=== PATIENT | male | born 1950 | race Caucasian/White ===

== ENCOUNTER 2017-02-02 19:14 | Emergency (ER) | payer MEDICARE ==
[~2017-02-02] VITALS: Ht 175.3 cm; Wt 80.6 kg
[2017-02-02] MEDS ORDERED: SODIUM CHLORIDE 0.9% 1,000 ML IV ONE (19:23)
[2017-02-02] MEDS ORDERED: SODIUM CHLORIDE FLUSH 10ML SYR IVF ONE (19:30)
[2017-02-02] MEDS ORDERED: MAALOX/HYOSCYAMINE/LIDOCAINE 45 ML BOTTLE PO ONE (19:30)
[2017-02-02] MEDS ORDERED: MAALOX/HYOSCYAMINE/LIDOCAINE 45 ML BOTTLE ONE (19:50)
[2017-02-02 20:19] LABS: BLOOD UREA NITROGEN 17 mg/dL (7-18)
[2017-02-02 20:24] LABS: ASPARTATE AMINO TRANSFERASE 20 U/L (15-37)
[2017-02-02 20:27] LABS: IS PT STATUS REG ER OR PRE ER? YES
[2017-02-02 20:44] VITALS: BP 135/73
== END 2017-02-02 21:13 | disposition home or self-care (01) ==
LOC: ED 20:06
DX: K29.00 Acute gastritis without bleeding (principal); R11.0 Nausea; J45.909 Unspecified asthma, uncomplicated; Z88.0 Allergy status to penicillin; Z88.2 Allergy status to sulfonamides
CPT/HCPCS: 36415; 71010; 80053; 83690; 84484; 85025; 93005; 96360; 99285; J7030

== ENCOUNTER 2017-06-07 13:55 | Emergency (ER) | payer MEDICARE ==
[~2017-06-07] VITALS: Ht 175.3 cm; Wt 77.2 kg
[2017-06-07 14:17] VITALS: BP 135/78
[2017-06-07] MEDS ORDERED: L.E.T SOLUTION TP ONE ×2 (14:30→14:38)
== END 2017-06-07 15:46 | disposition home or self-care (01) ==
LOC: ED 15:30
DX: S01.01XA Laceration without foreign body of scalp, initial encounter (principal); J45.909 Unspecified asthma, uncomplicated; Z88.0 Allergy status to penicillin; Z88.2 Allergy status to sulfonamides; X58.XXXA Exposure to other specified factors, initial encounter; Y93.89 Activity, other specified; Y92.009 Unspecified place in unspecified non-institutional (private) residence as the place of occurrence of the external cause; Y99.9 Unspecified external cause status
CPT/HCPCS: 12002; 99283

== ENCOUNTER → 2017-06-21 | Outpatient (CLI) | payer MEDICARE ==
[~2017-06-21] MED LIST: ASPI-496 PO; ATOR40TA78 PO; CHOL100012 PO; Fish Oil PO; MULT1TAB60 PO; TAMS0.4C2 PO; UBID30CA9 PO
== END | disposition home or self-care (01) ==
LOC: STAR 09:15
PROVIDERS: ATTEND Thoracic Surgery (Cardiothoracic Vascular Surgery)
DX: Z01.818 Encounter for other preprocedural examination (principal); I45.10 Unspecified right bundle-branch block; I44.4 Left anterior fascicular block; R94.31 Abnormal electrocardiogram [ECG] [EKG]
CPT/HCPCS: 93005

== ENCOUNTER 2017-07-04 06:16 | Day surgery (SDC) | payer MEDICARE ==
[~2017-07-04] VITALS: Ht 175.3 cm; Wt 76.9 kg
[2017-07-04] MEDS ORDERED: EPINEPHRINE 1 MG/ML, 1ML ONE (06:57)
[2017-07-04] MEDS ORDERED: BUPIVACAINE/PF 0.5% ONE (06:57)
[2017-07-04] MEDS ORDERED: LACTATED RINGERS 1,000 ML IV SCH ×2 (07:00→08:17)
[2017-07-04 07:01] VITALS: BP 136/83
[2017-07-04] MEDS ORDERED: FENTANYL PF 250 MCG/5ML ONE (07:10)
[2017-07-04] MEDS ORDERED: MIDAZOLAM 1 MG/ML, 2ML ONE (07:10)
[2017-07-04] MEDS ORDERED: CEFAZOLIN 1,000 MG ONE (07:16)
[2017-07-04] MEDS ORDERED: SUCCINYLCHOLINE 20 MG/ML, 10ML ONE (07:16)
[2017-07-04] MEDS ORDERED: GLYCOPYRROLATE 0.2MG/1ML, 5ML ONE (07:16)
[2017-07-04] MEDS ORDERED: ONDANSETRON 2MG/ML, 2ML ONE (07:16)
[2017-07-04] MEDS ORDERED: DEXAMETHASONE 4 MG/ML, 1ML ONE (07:16)
[2017-07-04] MEDS ORDERED: NEOSTIGMINE 1 MG/ML, 10ML ONE (07:16)
[2017-07-04] MEDS ORDERED: ROCURONIUM 10 MG/ML ONE (07:16)
[2017-07-04] MEDS ORDERED: PROPOFOL 10 MG/ML, 20ML ONE (07:16)
[2017-07-04] MEDS ORDERED: EPHEDRINE 50 MG/ML, 1ML ONE (07:47)
[2017-07-04] MEDS ORDERED: HYDROmorphone 1 MG/ML, 1ML IV PRN (08:00)
[2017-07-04] MEDS ORDERED: METOPROLOL 1 MG/ML, 5ML IV PRN (08:00)
[2017-07-04] MEDS ORDERED: FENTANYL PF 100 MCG/2ML IV PRN (08:00)
[2017-07-04] MEDS ORDERED: PROMETHAZINE 25 MG/ML, 1ML IV PRN (08:00)
[2017-07-04] MEDS ORDERED: ALBUTEROL SULFATE 2.5 MG/3 ML NPPB PRN (08:00)
[2017-07-04] MEDS ORDERED: OXYcodone 5 MG/5 ML ORAL.SOL UDC PO PRN (08:00)
[2017-07-04] MEDS ORDERED: ACETAMINOPHEN 325 MG TABLET PO PRN (08:00)
[2017-07-04] MEDS ORDERED: hydrALAzine 20 MG/ML, 1ML IV PRN (08:00)
[2017-07-04] MEDS ORDERED: MEPERIDINE/PF 25MG/0.5ML IVPush PRN (08:00)
[2017-07-04] MEDS ORDERED: ONDANSETRON 2MG/ML, 2ML IVPush PRN (08:30)
[2017-07-04] MEDS ORDERED: morphine SULFATE 10 MG/ML, 1ML IVPush PRN (08:30)
[2017-07-04] MEDS ORDERED: HYDROcodone/APAP 5/325 TABLET PO PRN (08:30)
[2017-07-04] MEDS ORDERED: ACETAMINOPHEN 650 MG/20.3 ML UDC ONE (08:34)
[2017-07-04] MEDS ORDERED: OXYcodone 5 MG/5 ML ORAL.SOL UDC ONE (08:34)
[2017-07-04] MEDS ORDERED: FENTANYL PF 100 MCG/2ML ONE (08:46)
== END 2017-07-04 15:35 ==
LOC: OUT 06:16
PROVIDERS: ATTEND Thoracic Surgery (Cardiothoracic Vascular Surgery)
DX: K40.90 Unilateral inguinal hernia, without obstruction or gangrene, not specified as recurrent (principal); Z88.1 Allergy status to other antibiotic agents; Z88.0 Allergy status to penicillin; Z79.82 Long term (current) use of aspirin
CPT/HCPCS: 49650; C1727; C1781; J0171; J0690; J1100; J2250; J2405; J2704; J2710; J3010; J3490; J7120; J0330

== ENCOUNTER 2018-07-24 20:11 | Emergency (ER) | payer MEDICARE ==
[~2018-07-24] VITALS: Ht 175.3 cm; Wt 81.3 kg
[2018-07-24 22:10] LABS: BASOPHILS # (AUTO) 0.05 x10^3/uL (0-0.1); BASOPHILS % (AUTO) 1 % (0-1); EOSINOPHILS # (AUTO) 0.18 x10^3/uL (0-0.4); EOSINOPHILS % (AUTO) 2 % (1-7); LYMPHOCYTES % (AUTO) 39 % (22-44); MD NO; MEAN CORPUSCULAR HEMOGLOBIN 31.6 pg (27.5-34.5); MEAN CORPUSCULAR VOLUME 93.1 fL (81-97); MEAN PLATELET VOLUME 7.3 fL (7.4-10.4); MONOCYTES # (AUTO) 0.68 x10^3/uL (0.2-0.8); MONOCYTES % (AUTO) 9 % (2-9); NEUTROPHILS # (AUTO) 3.55 x10^3/uL (1.8-6.8); NEUTROPHILS % (AUTO) 48 % (42-75); PLATELET COUNT 340 x10^3/uL (130-400); RED BLOOD COUNT 4.37 x10^6/uL (4.38-5.82); RED CELL DISTRIBUTION WIDTH 14.1 % (9.4-14.8)
[2018-07-24 22:22] LABS: ALANINE AMINOTRANSFERASE 51 U/L (12-78); ALBUMIN 3.2 g/dL (3.4-5.0); ANION GAP 8 mmol/L (5-15); CALCIUM 8.8 mg/dL (8.5-10.1); CHLORIDE 107 mmol/L (98-107); CREATININE 0.85 mg/dL (0.7-1.3)
[2018-07-24 22:27] LABS: ALKALINE PHOSPHATASE 68 U/L (45-117); BILIRUBIN,TOTAL 0.8 mg/dL (0.2-1.0); TOTAL PROTEIN 6.6 g/dL (6.4-8.2); TROPONIN I < 0.015 ng/mL (0.000-0.045)
[2018-07-24 23:00] VITALS: BP 138/72
== END 2018-07-24 23:02 | disposition home or self-care (01) ==
LOC: ED 21:37
DX: J45.901 Unspecified asthma with (acute) exacerbation (principal)
CPT/HCPCS: 36415; 71046; 80053; 83880; 84484; 85025; 93005; 94640; 99285; J7512

== ENCOUNTER 2020-01-27 18:53 | Emergency (ER) | payer MEDICARE ==
[~2020-01-27] VITALS: Ht 175.3 cm; Wt 80.7 kg
[2020-01-27] MEDS ORDERED: ONDANSETRON ODT 4 MG ONE (19:13)
--- NOTE | 2020-01-27 19:16 | NUR ---
ABDOMINAL PAIN, NAUSEA, AND CHILLS THAT STARTED THIS MORNING AND PROGRESSIVELY GOTTEN WORSE THROUGHOUT THE DAY. HX OF HERNIA REPAIRS.
[2020-01-27 19:23] LABS: BASOPHILS # (AUTO) 0.03 x10^3/uL (0-0.1); BASOPHILS % (AUTO) 0 % (0-1); EOSINOPHILS # (AUTO) 0.06 x10^3/uL (0-0.4); EOSINOPHILS % (AUTO) 1 % (1-7); LYMPHOCYTES # (AUTO) 1.65 x10^3/uL (1-3.4); LYMPHOCYTES % (AUTO) 25 % (22-44); MD NO; MEAN CORPUSCULAR HEMOGLOBIN 31.1 pg (27.5-34.5); MEAN CORPUSCULAR HGB CONC 33.7 g/dL (33.2-36.2); MEAN CORPUSCULAR VOLUME 92.2 fL (81-97); MEAN PLATELET VOLUME 7.1 fL (7.4-10.4); MONOCYTES # (AUTO) 0.46 x10^3/uL (0.2-0.8); MONOCYTES % (AUTO) 7 % (2-9); NEUTROPHILS # (AUTO) 4.46 x10^3/uL (1.8-6.8); NEUTROPHILS % (AUTO) 67 % (42-75); PLATELET COUNT 291 x10^3/uL (130-400); RED CELL DISTRIBUTION WIDTH 14.3 % (9.4-14.8)
[2020-01-27] MEDS ORDERED: ONDANSETRON ODT 4 MG PO ONE (19:30)
--- NOTE | 2020-01-27 19:31 | NUR ---
LABS DRAWN, ODT ZOFRAN GIVEN, PT TO XRAY.
[2020-01-27 19:34] LABS: ALANINE AMINOTRANSFERASE 27 U/L (12-78); ALBUMIN 3.8 g/dL (3.4-5.0); ANION GAP 6 mmol/L (5-15); CALCIUM 9.1 mg/dL (8.5-10.1); CHLORIDE 109 mmol/L (98-107); CREATININE 0.83 mg/dL (0.7-1.3)
[2020-01-27 19:36] LABS: ALKALINE PHOSPHATASE 71 U/L (45-117); TOTAL PROTEIN 7.2 g/dL (6.4-8.2)
[2020-01-27] MEDS ORDERED: MAALOX/HYOSCYAMINE/LIDOCAINE 45 ML BTL ONE (20:57)
[2020-01-27] MEDS ORDERED: MAALOX/HYOSCYAMINE/LIDOCAINE 45 ML BTL PO ONE (21:00)
[2020-01-27 21:01] VITALS: BP 137/61
--- NOTE | 2020-01-27 21:01 | NUR ---
NAUSEA SUBSIDED AFTER ZOFRAN. GI COCKTAIL GIVEN.
--- NOTE | 2020-01-27 21:31 | NUR ---
PT TO CT.
== END 2020-01-27 22:21 | disposition home or self-care (01) ==
LOC: ED 21:25
DX: R10.13 Epigastric pain (principal); R11.0 Nausea; R63.0 Anorexia
CPT/HCPCS: 36415; 74021; 74176; 80053; 83690; 85025; 99285; Q0162

== ENCOUNTER 2021-01-07 17:54 | Emergency (ER) | payer MEDICARE ==
[~2021-01-07] VITALS: Ht 175.3 cm; Wt 80.6 kg
[~2021-01-07 17:54] MED LIST changes: +MULT-449 PO; -MULT1TAB60 PO
[2021-01-07] MEDS ORDERED: DOXA2TAB9 PO (18:50)
--- NOTE | 2021-01-07 18:53 | NUR ---
PT C/O LUQ ABD PAIN X2-3 WEEKS. PT STATES PAIN STARTED UNDER LEFT RIBS AND PAIN IS NOW ACROSS LUQ. PT SEEN AT PCP ON SUNDAY, PT STARTED ON ABX FOR POSSIBLE DIVERTICULOSIS. PT CONNECTED TO MONITORING. CALL LIGHT IN REACH. PT PROVIDED URINE SAMPLE.
[2021-01-07] MEDS ORDERED: SODIUM CHLORIDE FLUSH 10ML SYR IVF ONE (19:30)
[2021-01-07] MEDS ORDERED: OMNIPAQUE 350 MG/ML, 100ML BOTTLE ONE (19:30)
--- NOTE | 2021-01-07 19:32 | NUR ---
PIV PLACED. LABS DRAWN AND SENT WITH LAB SLIP. UA COLLECTED AND SENT TO LAB.
[2021-01-07 19:40] LABS: MICROSCOPIC NOT IND
[2021-01-07 19:47] LABS: BASOPHILS % (AUTO) 1 % (0-1); EOSINOPHILS % (AUTO) 2 % (1-7); LYMPHOCYTES % (AUTO) 30 % (22-44); MEAN CORPUSCULAR HEMOGLOBIN 31.1 pg (27.5-34.5); MEAN CORPUSCULAR HGB CONC 33.5 g/dL (33.2-36.2); MEAN PLATELET VOLUME 7.3 fL (7.4-10.4); MONOCYTES % (AUTO) 9 % (2-9); NEUTROPHILS % (AUTO) 58 % (42-75); PLATELET COUNT 252 x10^3/uL (130-400); RED BLOOD COUNT 4.45 x10^6/uL (4.38-5.82); RED CELL DISTRIBUTION WIDTH 14.1 % (9.4-14.8)
[2021-01-07 19:48] LABS: MD NO
[2021-01-07 19:52] LABS: ALANINE AMINOTRANSFERASE 33 U/L (12-78); ALBUMIN 3.8 g/dL (3.4-5.0); ANION GAP 3 mmol/L (5-15); CHLORIDE 109 mmol/L (98-107); CREATININE 0.76 mg/dL (0.7-1.3)
[2021-01-07 19:54] LABS: ALKALINE PHOSPHATASE 70 U/L (45-117); BILIRUBIN,TOTAL 1.2 mg/dL (0.2-1.0); TOTAL PROTEIN 6.7 g/dL (6.4-8.2)
--- NOTE | 2021-01-07 20:09 | NUR ---
PT GOING TO CT
[2021-01-07 21:12] VITALS: BP 128/71
--- NOTE | 2021-01-07 21:31 | NUR ---
ERMD AT BEDSIDE TO UPDATE PT ON POC.
== END 2021-01-07 22:00 | disposition home or self-care (01) ==
LOC: ED 18:24
DX: R10.12 Left upper quadrant pain (principal); R10.32 Left lower quadrant pain
CPT/HCPCS: 36415; 74177; 80053; 81003; 83690; 85025; 99285; Q9967